=== PATIENT | female | born 1990 | race Two or more races ===

== ENCOUNTER 2021-04-22 17:49 | Emergency (ER) | payer OTHER ==
[~2021-04-22] VITALS: Ht 160 cm; Wt 83.0 kg
[2021-04-22 21:07] VITALS: BP 157/83
--- NOTE | 2021-04-23 00:12 | PHYS DOC ---
Past Medical History Past Surgical History: Appendectomy General Adult EDM: Chief Complaint: COUGH HPI: HPI: Patient is a 30 year old female here days of dry cough, congestion, myalgias, subjective fevers and chills. She reports that she is fully vaccinated against COVID-19, though she has not received a booster. She has been around her two children who have similar symptoms, who are unvaccinated. She denies abdominal pain, nausea, vomiting, diarrhea. She denies urinary symptoms. She denies chest pain or dyspnea. She does report decreased appetite but she is able to tolerate fluids. No recent travel history. No recent hospitalizations or surgeries. She denies hemoptysis or purulent sputum production. Review of Systems: Review of Systems: Constitutional: Fever, chills, myalgias Eyes: Denies change in visual acuity. [] HENT: Nasal congestion, denies sore throat or otalgia Respiratory: Dry cough, denies hemoptysis, denies dyspnea or wheezing Cardiovascular: Denies chest pain or edema. [] GI: Denies abdominal pain, nausea, vomiting, or diarrhea : Denies urinary symptoms Musculoskeletal: Fuhs myalgias, no focal joint swelling, redness or pain Integument: Denies rash. [] Neurologic: Mild headache, denies severe headache, denies focal weakness, numbness or tingling Endocrine: Denies polyuria or polydipsia. [] Lymphatic: Denies swollen glands. [] Psychiatric: Denies depression or anxiety. [] Heart Score: C/O Chest Pain: No Risk Factors: Risk Factors: DM, Current or recent (<one month) smoker, HTN, HLP, family history of CAD, obesity. Risk Scores: Score 0 - 3: 2.5% MACE over next 6 weeks - Discharge Home Score 4 - 6: 20.3% MACE over next 6 weeks - Admit for Clinical Observation Score 7 - 10: 72.7% MACE over next 6 weeks - Early Invasive Strategies Allergies: Allergies: Allergies Coded Allergies Type Severity Reaction Last Updated Verified No Known Drug Allergies 04/22/21 No Physical Exam: PE: Constitutional: Well developed, well nourished, no acute distress, non-toxic appearance. [] HENT: Normocephalic, atraumatic, oropharynx is patent and clear without exudate or erythema, mucous membranes are moist, TMs clear bilaterally Eyes: Conjunctiva normal, no discharge. [] Neck: Normal range of motion, no tenderness, supple, no stridor. No meningismus, trachea midline Cardiovascular:Heart rate regular rhythm, +2 radial pulses, warm and well- perfused Lungs & Thorax: Bilateral breath sounds clear to auscultation, frequent dry cough noted, no rales, rhonchi or wheezes, no stridor, no evidence of distress Abdomen: Abdomen is soft, nondistended, nontender Skin: Warm, dry, no erythema, no rash. [] Back: No tenderness, no CVA tenderness. [] Extremities: No tenderness, no cyanosis, no clubbing, ROM intact, no edema. No calf tenderness. Neurologic: Alert and oriented X 3, normal motor function, normal sensory function, no focal deficits noted. [] Psychologic: Affect normal, judgement normal, mood normal. [] Current Patient Data: Vital Signs: Vital Signs Date Time Temp Pulse Resp B/P (MAP) Pulse Ox O2 Delivery O2 Flow Rate FiO2 04/22/21 21:07 99.9 96 22 157/83 (107) 98 Room Air 99.9 EKG: EKG: [] Radiology/Procedures: Radiology/Procedures: IMAGING REPORT Signed PATIENT: KARISSA GONZALES ACCOUNT: [id number] : 1990 LOCATION: ER AGE: 30 SEX: F EXAM STATUS: REG ER ORD. PHYSICIAN: PEDRO LARKIN DO REASON: cough PROCEDURE: PORTABLE CHEST 1V EXAM: AP View of the chest DATE: 04/23/2021 12:31 AM INDICATION: Reason: cough / Spl. Instructions: / History: COMPARISON: No Prior FINDINGS: The heart is not enlarged. Mediastinal and hilar contours are normal. No focal parenchymal airspace opacity. No pleural effusion or pneumothorax. IMPRESSION: 1. No radiographic evidence for acute cardiopulmonary process. Electronically signed by: Roger Feliz MD (04/23/2021 1:20 AM) [facility] DICTATED and SIGNED BY: ROGER FELIZ MD DATE: 04/23/21 [id number] 0 Course & Med Decision Making: Course & Med Decision Making Pertinent Labs and Imaging studies reviewed. (See chart for details) The patient is given IM Toradol for pain, she is given p.o. Tessalon for cough. I discussed the findings, differential diagnosis and plan of care with the patient. She manifests no evidence of distress or hypoxia. No indication for further invasive exams, imaging or admission at this time, based on current clinical presentation. I discussed home care instructions, she may alternate Tylenol and ibuprofen for pain and fever control. She is to drink plenty fluids, stay hydrated, get plenty of rest. She is to self isolate for 10 days from onset of symptoms. She is prescribed Tessalon Perles for cough control at home. She is to perform contact tracing, all family members must self isolate or quarantine. Return precautions are given. She verbalizes understanding. Kamaljit Disclaimer: Kamaljit Disclaimer: This electronic medical record was generated, in whole or in part, using a voice recognition dictation system. Departure Departure Impression: Primary Impression: COVID-19 Disposition: HOME / SELF CARE / HOMELESS Condition: STABLE Referrals: MARIA M DUTTA MD (PCP) Additional Instructions: You have been tested for or diagnosed with COVID-19. It is an infection caused by a new type of coronavirus. COVID-19 will cause cold-like or mild flu symptoms in most. It can cause more severe symptoms like problems breathing in some. There is no treatment for COVID-19. The body will clear the infection over time. Self-care will help to ease discomfort. Steps to Take: Self-Care Rest as needed. Healthy habits may help you feel better. Steps include: Choose healthy foods including fruits and vegetables. Drink water throughout the day. Get plenty of sleep each night. If you smoke, try to quit. It may ease breathing. Avoid alcohol. Keep Others Healthy The virus can spread to others. Droplets are released every time you sneeze or cough. The droplets can get into the mouth, nose, or eyes of people near you and lead to infection. To lower the chances of spreading COVID-19 to others: Stay at home until your doctor has said it is safe to leave. If you tested positive this will mean staying isolated until both of the following are true: At least 7 days have passed since the start of illness. You are free of fever for at least 72 hours without the use of medicine. During this time: - Avoid public areas, events, or transportation. Do not return to work or school until your doctor has said it is safe to do so. - Call ahead if you need to go to a medical center. Let them know you may have COVID-19. It will help them guide you where to go. They may also ask you to wear a facemask when you come to the office. - If you call for emergency medical services, let them know you may have COVID- 19. While at home: - Try to avoid close contact with others. Stay about 6 feet away. - If possible, spend most of your time in a separate room from others. - Use a face mask if you will be in close contact with others such as sharing a room or vehicle. - Have someone wipe down common surfaces in the home. Use household operation shift supervisor every day on areas like doorknobs, counters, or sinks. - Cough or sneeze into a tissue. Throw the tissue away right after use. If a tissue is not available, cough or sneeze into your elbow. - Wash your hands often. Wash them after sneezing or coughing. Use soap and water and wash for at least 20 seconds. Alcohol based hand catch basin cleaner can be used if soap and water is not available. - Do not prepare food for others. Avoid sharing personal items like forks, spoons, or toothbrushes. - Avoid close contact with pets while you are sick. There is no evidence of the virus passing to pets. This is a safety step until more is known about this virus. Isolation can be frustrating. Social interaction can help. Keep in touch with friends and family through phone and tech options. You can still interact with others in your home, just keep a safe distance of about 6 feet. Follow-up: Your doctors office will check in with you to see if there are any changes in your health. You may be asked to keep track of symptoms to share with them. They will also let you know when you are clear to be in public again. Problems to Look Out For: Contact your doctor if your recovery is not going as you expect. Get emergency care if you have problems such as: - Trouble breathing - Nonstop chest pain or pressure - Changes in awareness, confusion, or problems waking - Lips or face have bluish color - Worsening of symptoms If you think you have an emergency, call for emergency medical services right away. As taken from [facility] Benzonatate (BENZONATATE) 200 Mg Capsule 1 CAP PO PRN TID PRN for cough, #20 CAP 0 Refills Prov: PEDRO LARKIN DO 04/23/21 PEDRO LARKIN DO Apr 23, 2021 00:12
[2021-04-23] MEDS: BENZONATATE 100 MG CAPSULE. PO ONE (00:47)
[2021-04-23] MEDS: KETOROLAC 30 MG/ML VIAL. IM ONE (00:48)
[2021-04-23 00:59] LABS: BILIRUBIN,URINE SMALL (NEG); CLARITY,URINE CLEAR; COLOR,URINE YELLOW; NITRITE,URINE NEGATIVE (NEG); PROTEIN,URINE 30 mg/dL (NEG-TRACE)
[2021-04-23 01:04] LABS: U PREG PATIENT NEGATIVE (NEG)
[2021-04-23 01:11] LABS: BACTERIA,URINE 0 /HPF (0-FEW); RBC,URINE TNTC /HPF (0-2)
[2021-04-23 01:19] LABS: INFLUENZA A PATIENT NEGATIVE (NEGATIVE); INFLUENZA B PATIENT NEGATIVE (NEGATIVE)
--- NOTE | 2021-04-23 01:23 | RAD ---
EXAM: AP View of the chest DATE: 04/23/2021 12:31 AM INDICATION: Reason: cough / Spl. Instructions: / History: COMPARISON: No Prior FINDINGS: The heart is not enlarged. Mediastinal and hilar contours are normal. No focal parenchymal airspace opacity. No pleural effusion or pneumothorax. IMPRESSION: 1. No radiographic evidence for acute cardiopulmonary process. Electronically signed by: Roger Vieira MD (04/23/2021 1:20 AM) [facility]
[2021-04-23] MEDS ORDERED: BENZ200C47 PO (01:56)
== END 2021-04-23 02:30 | disposition home or self-care (01) ==
LOC: ER 17:49
DX: U07.1 COVID-19 (principal)
CPT/HCPCS: 71045; 81001; 81025; 87086; 87426; 87804; 96372; 99284; J1885; 87147